=== PATIENT | male | born 1960 | race Caucasian/White ===

== ENCOUNTER 2025-01-01 16:32 | Emergency (ER) | payer MEDICARE, OTHER ==
[2025-01-01] MEDS: Ketorolac 30 MG/ML SDV IM ONE (17:38)
[2025-01-01] MEDS: Acetaminophen 500 MG Tab PO ONE (17:39)
== END 2025-01-01 17:37 | disposition home or self-care (01) ==
LOC: DL.ED 16:32
DX: J10.1 Influenza due to other identified influenza virus with other respiratory manifestations (principal); Z88.0 Allergy status to penicillin
CPT/HCPCS: 87081; 87428; 87430; 96372; 99282; 99284; A9270; J1885